=== PATIENT | male | born 1995 | race Caucasian/White ===

== ENCOUNTER → 2018-07-19 | Outpatient (CLI) | payer OTHER ==
--- NOTE | 2018-07-19 16:06 | 2DMMODE ---
[place] [address] 2 D/M-MODE ECHOCARDIOGRAM Name: MACEY ORR Room: [facility]#: [id number] Admission: 07/19/18 Attend Phys: Cornelia Velasco Discharge: Date of : 89 Date of Service: 07/19/18 1605 Report #: [id number] THIS REPORT FOR: //name// APPROVED REPORT Study performed: 07/19/2018 13:23:34 EXAM: Comprehensive 2D, Doppler, and color-flow Echocardiogram BSA: 1.88 HR: 98 bpm BP: 120/70 mmHg Other Information Study Quality: Good Indications R/O Marfans 2D Dimensions IVSd: 10.46 (7-11mm) LVOT Diam: 20.73 (18-24mm) LVDd: 44.29 mm PWd: 10.13 (7-11mm) Ascending Ao: 27.17 (22-36mm) LVDs: 26.90 (25-40mm) Aortic Root: 24.36 mm Volumes Left Atrial Volume (Systole) LA ESV Index: 13.10 mL/m2 Aortic Valve AoV Peak Carl.: 1.09 m/s AO Peak Gr.: 4.73 mmHg LVOT Max P.67 mmHg AO Mean Gr.: 2.69 mmHg LVOT Mean P.68 mmHg LVOT Max V: 0.96 m/s AO V2 VTI: 16.07 cm LVOT Mean V: 0.59 m/s JAYSON (VTI): 2.99 cm2 LVOT V1 VTI: 14.25 cm Mitral Valve E/A Ratio: 1.08 MV Decel. Time: 157.47 ms MV E Max Carl.: 0.59 m/s MV PHT: 45.67 ms MVA (PHT): 4.82 cm2 [place] [address] 2 D/M-MODE ECHOCARDIOGRAM Name: MACEY ORR Room: [facility]#: [id number] Admission: 07/19/18 Attend Phys: Cornelia Velasco Discharge: Date of : 89 Date of Service: 07/19/18 1605 Report #: [id number] TDI E/Lateral E': 3.93 E/Medial E': 5.36 Medial E' Carl.: 0.11 m/s Lateral E' Carl.: 0.15 m/s Pulmonary Valve PV Peak Carl.: 0.79 m/s PV Peak Gr.: 2.51 mmHg Left Ventricle The left ventricle is normal size. There is normal LV segmental wall motion. There is normal left ventricular wall thickness. Left ventricular systolic function is normal. The left ventricular ejection fraction is within the normal range. LVEF is 55%. The left ventricular diastolic function is normal. Right Ventricle The right ventricle is normal size. The right ventricular systolic function is normal. Atria The left atrium size is normal. The right atrium size is normal. Aortic Valve The aortic valve is normal in structure. Trace aortic regurgitation. There is no aortic valvular stenosis. Mitral Valve The mitral valve is normal in structure. There is no mitral valve regurgitation noted. No evidence of mitral valve stenosis. Tricuspid Valve The tricuspid valve is normal in structure. There is no tricuspid valve regurgitation noted. Pulmonic Valve The pulmonary valve is normal in structure. There is no pulmonic valvular regurgitation. Great Vessels The aortic root is normal in size. IVC is normal in size and collapses >50% with inspiration. Pericardium There [place] [address] 2 D/M-MODE ECHOCARDIOGRAM Name: MACEY ORR Room: [facility]#: [id number] Admission: 07/19/18 Attend Phys: Cornelia Velasco Discharge: Date of : 89 Date of Service: 07/19/18 1605 Report #: [id number] <Conclusion> The left ventricle is normal size. There is normal left ventricular wall thickness. Left ventricular systolic function is normal. The left ventricular ejection fraction is within the normal range. LVEF is 55%. The left ventricular diastolic function is normal. The right ventricle is normal size. The left atrium size is normal. The aortic valve is normal in structure. The mitral valve is normal in structure. IVC is normal in size and collapses >50% with inspiration. There is no pericardial effusion. There is normal LV segmental wall motion. <ELECTRONICALLY SIGNED> By: Gonzalo Stapleton MD, FACC 07/19/18 1605 1605 1605 Gonzalo Stapleton MD, FACC /INF
== END ==
LOC: M.CRD 13:00
DX: I35.8 Other nonrheumatic aortic valve disorders (principal); M24.9 Joint derangement, unspecified

== ENCOUNTER → 2020-02-18 | Outpatient (CLI) | payer OTHER ==
--- NOTE | 2020-02-18 15:17 | 2DMMODE ---
[place] [address] 2 D/M-MODE ECHOCARDIOGRAM Name: MACEY ORR Room: [facility]#: [id number] Admission: 02/18/20 Attend Phys: Cornelia Velasco Discharge: Date of : 89 Date of Service: 02/18/20 1517 Report #: [id number] THIS REPORT FOR: cc: Cornelia Velasco,Cornelia Correa,Cheikh Dugan MD [facility] ~ APPROVED REPORT Study performed: 02/18/2020 13:53:49 EXAM: Comprehensive 2D, Doppler, and color-flow Echocardiogram Patient Location: Out-Patient BSA: 1.92 HR: 86 bpm BP: 120/70 mmHg Other Information Study Quality: Good 2D Dimensions IVSd: 9.43 (7-11mm) LVOT Diam: 20.06 (18-24mm) LVDd: 43.93 mm PWd: 9.20 (7-11mm) Ascending Ao: 26.06 (22-36mm) LVDs: 28.66 (25-40mm) Aortic Root: 23.57 mm Volumes Left Atrial Volume (Systole) LA ESV Index: 11.40 mL/m2 Aortic Valve AoV Peak Carl.: 1.05 m/s AO Peak Gr.: 4.42 mmHg LVOT Max P.56 mmHg AO Mean Gr.: 2.42 mmHg LVOT Mean P.21 mmHg LVOT Max V: 0.80 m/s AO V2 VTI: 17.62 cm LVOT Mean V: 0.50 m/s JAYSON (VTI): 2.31 cm2 LVOT V1 VTI: 12.85 cm Mitral Valve E/A Ratio: 1.35 MV Decel. Time: 184.40 ms MV E Max Carl.: 0.69 m/s MV PHT: 53.48 [place] [address] 2 D/M-MODE ECHOCARDIOGRAM Name: MACEY ORR Room: [facility]#: [id number] Admission: 02/18/20 Attend Phys: Cornelia Velasco Discharge: Date of : 89 Date of Service: 02/18/20 1517 Report #: [id number] MVA (PHT): 4.11 cm2 TDI E/Lateral E': 3.83 E/Medial E': 5.75 Medial E' Carl.: 0.12 m/s Lateral E' Carl.: 0.18 m/s Pulmonary Valve PV Peak Carl.: 0.83 m/s PV Peak Gr.: 2.74 mmHg Tricuspid Valve RAP Estimate: 5.00 mmHg TR Peak Gr.: 22.95 mmHg RVSP: 27.95 mmHg PA Pressure: 27.95 mmHg Left Ventricle The left ventricle is normal size. There is normal LV segmental wall motion. There is normal left ventricular wall thickness. Left ventricular systolic function is borderline. LVEF is 50-55%. The left ventricular diastolic function is normal. Right Ventricle The right ventricle is normal size. The right ventricular systolic function is normal. Atria The left atrium size is normal. The right atrium size is normal. Aortic Valve The aortic valve is normal in structure. trace aortic regurgitation. There is no aortic valvular stenosis. Mitral Valve The mitral valve is normal in structure. There is no mitral valve regurgitation noted. No evidence of mitral valve stenosis. Tricuspid Valve The tricuspid valve is normal in structure. trace tricuspid regurgitation. Pulmonic Valve The pulmonary valve is normal in structure. There is no pulmonic valvular regurgitation. [place] [address] 2 D/M-MODE ECHOCARDIOGRAM Name: MACEY ORR Room: [facility]#: [id number] Admission: 02/18/20 Attend Phys: Cornelia Velasco Discharge: Date of : 89 Date of Service: 02/18/20 1517 Report #: [id number] The aortic root is normal in size. IVC is normal in size and collapses >50% with inspiration. Pericardium There is no pericardial effusion. <Conclusion> LVEF is 50-55%. trace aortic regurgitation. trace tricuspid regurgitation. <ELECTRONICALLY SIGNED> By: Cheikh Martin MD, FACC 02/18/201516 16 16 Cheikh Martin MD, FACC /INF
== END ==
LOC: M.CRD 13:40
PROVIDERS: ATTEND Family Medicine
DX: Q77 Osteochondrodysplasia with defects of growth of tubular bones and spine (principal)